=== PATIENT | male | born 1985 | race African-American/Black ===

== ENCOUNTER → 2019-11-16 | Outpatient (CLI) | payer OTHER ==
[2019-11-17 03:44] LABS: RUBELLA AB IGG-REFLAB 7.81 index (Immune >0.99); RUBEOLA (MEASLES) IGG 65.2 AU/mL (Immune >16.4)
== END | disposition home or self-care (01) ==
LOC: PUC 12:13
DX: Z02.1 Encounter for pre-employment examination (principal)
CPT/HCPCS: 86706; 86735; 86762; 86765; 86787

== ENCOUNTER 2020-10-04 15:18 | Emergency (ER) | payer OTHER ==
[~2020-10-04] VITALS: Ht 188 cm; Wt 145.4 kg
[2020-10-04] MEDS ORDERED: IODI150T PO (15:34)
[2020-10-04] MEDS ORDERED: MULT-1290 PEG (15:34)
[2020-10-04] MEDS ORDERED: [UNRECOGNIZED DRUG - CODE] PEG (15:34)
[2020-10-04] MEDS ORDERED: ACET-3385 PO (15:41)
[2020-10-04 16:15] VITALS: BP 130/70
[2020-10-04] MEDS ORDERED: KETOROLAC TROMETHAMINE 10 MG TABLET PO ONE (16:15)
== END 2020-10-04 17:10 | disposition home or self-care (01) ==
LOC: EMS 15:18
DX: S90.32XA Contusion of left foot, initial encounter (principal); W20.8XXA Other cause of strike by thrown, projected or falling object, initial encounter; Y93.89 Activity, other specified; Y92.89 Other specified places as the place of occurrence of the external cause; Y99.8 Other external cause status
CPT/HCPCS: 99283

== ENCOUNTER 2021-06-09 17:40 | Emergency (ER) | payer OTHER ==
[~2021-06-09] VITALS: Ht 182.9 cm; Wt 145.4 kg
[~2021-06-09 17:40] MED LIST: ACET-3385 PO; IODI150T PO; MULT-1290 PEG; [UNRECOGNIZED DRUG - CODE] PEG
[2021-06-09 17:57] VITALS: BP 115/67
[2021-06-09] MEDS ORDERED: LIDOCAINE 5% TRANSDERMAL PATCH TD ONE (18:00)
[2021-06-09] MEDS ORDERED: METHOCARBAMOL 500 MG TABLET PO ONE (19:15)
== END 2021-06-09 18:17 | disposition home or self-care (01) ==
LOC: EMS 17:42
DX: S13.4XXA Sprain of ligaments of cervical spine, initial encounter (principal); X58.XXXA Exposure to other specified factors, initial encounter; Y93.89 Activity, other specified; Y92.89 Other specified places as the place of occurrence of the external cause; Y99.8 Other external cause status
CPT/HCPCS: 99283

== ENCOUNTER 2022-01-16 14:23 | Emergency (ER) | payer OTHER ==
[~2022-01-16] VITALS: Ht 188 cm; Wt 127.3 kg
[2022-01-16 14:25] VITALS: BP 149/77
[2022-01-16] MEDS ORDERED: PERMETHRIN 5% 60 GM CREAM TP ONE (14:30)
== END 2022-01-16 15:22 | disposition home or self-care (01) ==
LOC: EMS 14:23
DX: R21 Rash and other nonspecific skin eruption (principal)
CPT/HCPCS: 99282; Z7502; Z7610

== ENCOUNTER 2022-02-05 09:04 | Emergency (ER) | payer OTHER ==
[~2022-02-05] VITALS: Ht 182.9 cm; Wt 145.4 kg
[2022-02-05 09:16] VITALS: BP 118/74
== END 2022-02-05 10:01 | disposition home or self-care (01) ==
LOC: EMS 09:05
DX: S61.210A Laceration without foreign body of right index finger without damage to nail, initial encounter (principal); W27.8XXA Contact with other nonpowered hand tool, initial encounter; Y93.89 Activity, other specified; Y92.89 Other specified places as the place of occurrence of the external cause; Y99.8 Other external cause status
CPT/HCPCS: 12001; 99282; Z7502

== ENCOUNTER 2022-02-14 18:45 | Emergency (ER) | payer OTHER ==
[~2022-02-14] VITALS: Ht 185.4 cm; Wt 127.3 kg
[2022-02-14 19:48] VITALS: BP 116/73
== END 2022-02-14 20:20 | disposition home or self-care (01) ==
LOC: EMS 18:50
DX: S61.210D Laceration without foreign body of right index finger without damage to nail, subsequent encounter (principal); X58.XXXD Exposure to other specified factors, subsequent encounter
CPT/HCPCS: 99281; Z7502

== ENCOUNTER 2022-04-11 16:24 | Emergency (ER) | payer OTHER ==
[~2022-04-11] VITALS: Ht 188 cm; Wt 159.1 kg
[2022-04-11 18:54] VITALS: BP 141/76
== END 2022-04-11 19:30 | disposition home or self-care (01) ==
LOC: EMS 16:32
DX: S90.31XA Contusion of right foot, initial encounter (principal); X58.XXXA Exposure to other specified factors, initial encounter; Y93.89 Activity, other specified; Y92.89 Other specified places as the place of occurrence of the external cause; Y99.8 Other external cause status
CPT/HCPCS: 99283

== ENCOUNTER 2022-04-19 16:59 | Emergency (ER) | payer OTHER ==
[~2022-04-19] VITALS: Ht 188 cm; Wt 143.2 kg
[2022-04-19 17:00] VITALS: BP 102/66
== END 2022-04-19 19:47 | disposition home or self-care (01) ==
LOC: EMS 17:00
DX: S90.31XA Contusion of right foot, initial encounter (principal); F10.20 Alcohol dependence, uncomplicated; X58.XXXA Exposure to other specified factors, initial encounter; Y93.89 Activity, other specified; Y92.89 Other specified places as the place of occurrence of the external cause; Y99.8 Other external cause status
CPT/HCPCS: 99283

== ENCOUNTER 2022-11-01 16:44 | Emergency (ER) | payer OTHER ==
[~2022-11-01] VITALS: Ht 188 cm; Wt 127.3 kg
[2022-11-01 17:07] VITALS: BP 120/68
== END 2022-11-01 22:51 | disposition home or self-care (01) ==
LOC: EMS 16:49
DX: S63.502A Unspecified sprain of left wrist, initial encounter (principal); Z98.890 Other specified postprocedural states; W01.0XXA Fall on same level from slipping, tripping and stumbling without subsequent striking against object, initial encounter; Y93.89 Activity, other specified; Y92.830 Public park as the place of occurrence of the external cause; Y99.8 Other external cause status
CPT/HCPCS: 99283